=== PATIENT | male | born 2000 | race Two or more races ===

== ENCOUNTER 2022-01-01 06:12 | Day surgery (SDC) | payer BC ==
[2021-12-27 14:30] LABS: Basophils # (auto) 0 10 ^3/uL (0-0.2); Basophils % (auto) 0.8 % (0.0-2.0); Eosinophils # (auto) 0.3 10 ^3/uL (0-0.8); Eosinophils % (auto) 5.4 % (0.0-7.0); Hematocrit 48.1 % (41.0-53.0); Hemoglobin 16.2 g/dL (13.5-17.5); Lymphocytes # (auto) 1.3 10 ^3/uL (0.4-5.4); Lymphocytes % (auto) 28.5 % (10.0-50.0); Mean Corpuscular Hemoglobin 29.3 pg (28.0-32.0); Mean Corpuscular Hgb Conc. 33.7 g/dL (32.0-36.0); Mean Corpuscular Volume 86.9 fL (80.0-100.0); Monocytes # (auto) 0.6 10 ^3/uL (0-1.3); Monocytes % (auto) 12.5 % (0.0-12.0); Neutrophils # (auto) 2.5 10 ^3/uL (1.6-8.6); Neutrophils % (auto) 52.8 % (37.0-80.0); Nucleated Red Blood Cells % 0.2 %; Red Blood Cells 5.53 10^6/uL (4.5-5.90); Red Cell Distribution Width 13.5 % (11.8-14.3); White Blood Cell 4.7 10^3/uL (4.4-10.8)
[2021-12-27 14:39] LABS: Urine Bacteria NONE SEEN /hpf (None Seen); Urine Blood Negative /uL (Negative); Urine Mucus FEW (None Seen); Urine WBC 5 /hpf (0 - 3)
[2021-12-27 14:45] LABS: INR 1.02 (0.9-1.15); Partial Thromboplastin Time 32.9 sec (24.6-33.4)
[2021-12-27 15:09] LABS: Potassium 4.1 mmol/L (3.5-5.1)
[2021-12-27 15:12] LABS: BUN/Creatinine Ratio 10.6; Bilirubin, Total 0.6 mg/dL (0.2-1.0)
[~2022-01-01] VITALS: Ht 188 cm; Wt 147.0 kg
[~2022-01-01 06:12] MED LIST: VALS40TA2 PO
[2022-01-01] MEDS ORDERED: ceFAZolin 1GM/50ML 100 ML IV ONE (06:40)
[2022-01-01] MEDS ORDERED: ceFAZolin 1GM VL ONE (07:04)
[2022-01-01] MEDS ORDERED: NEOMYCIN-BACITRACIN-POLYM 15GM TOP OINT TOP ONE (07:04)
[2022-01-01] MEDS ORDERED: ROPIVACAINE 0.5% (5MG/ML) 20ML AMPULE IJ ONE (07:04)
[2022-01-01] MEDS ORDERED: BUPIVACAINE W/ EPINEPH 0.25% INJ 50ML MDV ONE (07:24)
[2022-01-01] MEDS ORDERED: fentaNYL CITRATE 100 MCG/2 ML VL ONE (07:36)
[2022-01-01] MEDS ORDERED: MIDAZOLAM HCL 2MG/2ML 2ml VIAL (1mg/ml) ONE (07:36)
[2022-01-01] MEDS ORDERED: PROPOFOL 10 MG/ML 20 ML IV ONE (07:36)
[2022-01-01] MEDS ORDERED: DexAMETHasone SOD PHOS 10MG/1ML VIAL INJ ONE (07:36)
[2022-01-01] MEDS ORDERED: MEPERIDINE HCL (25 MG/ML) 1ML VIAL ONE (07:36)
[2022-01-01] MEDS ORDERED: KETOROLAC TROMETH 30 MG/ML 1ML VIAL ONE (08:08)
[2022-01-01] MEDS ORDERED: ONDANSETRON HCL 4 MG/2 ML VIAL IV PRN (08:15)
[2022-01-01] MEDS ORDERED: MIDAZOLAM HCL 2MG/2ML 2ml VIAL (1mg/ml) IV PRN (08:15)
[2022-01-01] MEDS ORDERED: MORPHINE SULFATE 4 MG/ML SYR/VIAL IV PRN (08:15)
[2022-01-01] MEDS ORDERED: KETOROLAC TROMETH 30 MG/ML 1ML VIAL IV ONE (08:15)
[2022-01-01] MEDS ORDERED: LABETALOL HCL 5 MG/ML 4ML SYRINGE IV PRN (08:15)
[2022-01-01] MEDS ORDERED: ePHEDrine SULFATE 50 MG/ML AMP IV PRN (08:15)
[2022-01-01] MEDS ORDERED: HYDROmorphone HCL 2 MG/ML VL/or syr IV PRN (08:15)
[2022-01-01] MEDS ORDERED: SILVER SULFADIAZINE 1 % TOPICAL CREAM 50GM TOP ONE (08:18)
[2022-01-01] MEDS ORDERED: SILVER NITRATE-POTAS NITRA STICK TOP ONE (08:19)
[2022-01-01 09:45] VITALS: BP 126/77
== END 2022-01-01 10:25 | disposition home or self-care (01) ==
LOC: SUR 06:12
PROVIDERS: ATTEND Podiatrist Foot & Ankle Surgery
DX: B07.0 Plantar wart (principal); M72.2 Plantar fascial fibromatosis; M79.671 Pain in right foot; M79.672 Pain in left foot
CPT/HCPCS: 11421; 11422; 36415; 80053; 81001; 85025; 85610; 85730; 88305; J0690; J1100; J1885; J2175; J2250; J2704; J2795; J3010; U0003

== ENCOUNTER → 2022-05-21 | Day surgery (SDC) | payer BC ==
[2022-05-16 12:17] LABS: Urine WBC None Seen /hpf (0 - 3)
[2022-05-16 12:22] LABS: Basophils # (auto) 0.1 10 ^3/uL (0-0.2); Basophils % (auto) 1.1 % (0.0-2.0); Eosinophils # (auto) 0.3 10 ^3/uL (0-0.8); Eosinophils % (auto) 4.1 % (0.0-7.0); Hematocrit 45.9 % (41.0-53.0); Hemoglobin 16.3 g/dL (13.5-17.5); Lymphocytes % (auto) 31.7 % (10.0-50.0); Mean Corpuscular Hgb Conc. 35.5 g/dL (32.0-36.0); Mean Corpuscular Volume 87.2 fL (80.0-100.0); Monocytes # (auto) 0.5 10 ^3/uL (0-1.3); Monocytes % (auto) 8.1 % (0.0-12.0); Neutrophils # (auto) 3.5 10 ^3/uL (1.6-8.6); Nucleated Red Blood Cells % 1.1 %; Red Blood Cells 5.27 10^6/uL (4.5-5.90); Red Cell Distribution Width 13.4 % (11.8-14.3); White Blood Cell 6.5 10^3/uL (4.4-10.8)
[2022-05-16 12:51] LABS: Urine Bacteria FEW /hpf (None Seen); Urine Blood Negative /uL (Negative); Urine Specific Gravity 1.014 (1.001-1.035)
[2022-05-16 13:07] LABS: Albumin 4.3 g/dL (3.4-5.0); BUN/Creatinine Ratio 14.6; Calcium 9.2 mg/dL (8.5-10.1)
[2022-05-16 13:10] LABS: Bilirubin, Total 0.4 mg/dL (0.2-1.0); Total Protein 8.3 g/dL (6.4-8.2)
[2022-05-16 13:25] LABS: INR 0.96 (0.9-1.15); Partial Thromboplastin Time 31.9 sec (24.6-33.4)
[~2022-05-21] VITALS: Ht 182.9 cm; Wt 115.7 kg
[~2022-05-21] MED LIST changes: +BACITRACIN TOP OINT 1 UD PKG TOP ONE; +BUPIVACAINE 0.75% INJ 10ML MPV SDV IJ ONE; +LIDOCAINE 2% (LOCAL ANESTH.) PF 5ml SDV ONE; +LIDOCAINE W/ EPINEPHRINE 2% INJ 20ML VIAL ONE; +MIDAZOLAM HCL 2MG/2ML 2ml VIAL (1mg/ml) ONE; +ONDANSETRON HCL 4 MG/2 ML VIAL ONE; +PROPOFOL 10 MG/ML 20 ML IV ONE; +SILVER NITRATE-POTAS NITRA STICK TOP ONE; +SILVER SULFADIAZINE 1 % TOPICAL CREAM 50GM TOP ONE; +ceFAZolin 1GM/50ML 100 ML IV ONE; +fentaNYL CITRATE 100 MCG/2 ML VL ONE; +fentaNYL CITRATE 5 ML ONE
[2022-05-21 12:26] VITALS: BP 126/56
== END | disposition home or self-care (01) ==
LOC: SUR 07:44
PROVIDERS: ATTEND Podiatrist Foot & Ankle Surgery
DX: B07.0 Plantar wart (principal); M79.671 Pain in right foot; Z20.822 Contact with and (suspected) exposure to COVID-19
CPT/HCPCS: 17110; 36415; 80053; 81001; 85025; 85610; 85730; 88305; J0690; J2001; J2250; J2405; J2704; J3010; L3260; U0003; J3490